=== PATIENT | female | born 1955 | race Caucasian/White ===

== ENCOUNTER 2017-04-05 07:06 | Inpatient (IN) | payer MEDICARE, OTHER ==
[2017-03-24 20:39] LABS: BASOPHILS 0.3 %; BASOPHILS ABSOLUTE 0.04 10/3/uL (0.0-0.16); EOSINOPHILS 1.2 %; EOSINOPHILS ABSOLUTE 0.15 10/3/uL (0.0-0.53); HEMATOCRIT 48.5 % (36.0-48.0); HEMOGLOBIN 15.9 g/dL (12.0-16.0); IMMATURE GRANULOCYTES 0.3 %; IMMATURE GRANULOCYTES ABSOLUTE 0.04 10/3/uL (0.0-0.11); LYMPHOCYTES ABSOLUTE 4.54 10/3/uL (0.67-4.30); MEAN CORPUS HGB CONC 32.8 g/dL (32.0-36.0); MEAN CORPUSCULAR HEMOGLOB 28.4 pg (26.0-34.0); MEAN CORPUSCULAR VOLUME 86.6 fL (80-100); MEAN PLATELET VOLUME 12.4 fL (9.2-13.0); MONOCYTES 6.1 %; MONOCYTES ABSOLUTE 0.75 10/3/uL (0.21-1.20); NEUTROPHILS 55.1 %; NEUTROPHILS ABSOLUTE 6.74 10/3/uL (2.02-8.40); PLATELET COUNT 260 10/3/uL (150-400); RBC DISTRIBUTION WIDTH 14.3 % (12.0-16.0); WHITE BLOOD CELLS 12.3 10/3/uL (4.5-10.5)
[2017-03-24 20:41] LABS: MANUAL DIFF NO %
[2017-03-24 20:43] LABS: PARTIAL THROMBO TIME 35.4 SEC (22.5-37.2); PROTIME (NOT ORD) 12.8 SEC (12.0-14.5)
[2017-03-24 21:09] LABS: ASCORBIC ACID (UR NOT ORDER) NEG (NEG); BILIRUBIN, URINE NEGATIVE (NEG); KETONE, URINE NEGATIVE (NEG); LEUKOCYTE ESTERASE(NOT OR NEG (NEG); WBC (NOT ORDERED) (RFLEX) < 1 (0-5)
[2017-03-30 20:58] LABS: A/G RATIO 1.5 (0.7-1.9); ALBUMIN 4.2 G/DL (3.5-5.0); ALKALINE PHOSPHATASE 73 U/L (45-117); BUN (BLOOD UREA NITROGEN) 7 MG/DL (6-23); CALCIUM, SERUM 9.6 MG/DL (8.5-10.4); CHLORIDE, SERUM 97 MMOL/L (96-112); CO2 (CARBON DIOXIDE) 24 MMOL/L (24-34); CREATININE 0.72 MG/DL (0.55-1.02); GFR AFRICAN AMERICAN 103 ML/MIN (>=60); GFR NON AFRICAN AMERICAN 89 ML/MIN (>=60); GLOBULIN 2.8 G/DL (2.5-4.1); GLUCOSE, SERUM 109 MG/DL (60-99); POTASSIUM, SERUM 3.9 MMOL/L (3.5-5.3); SGOT(AST) 14 U/L (5-40); SGPT(ALT) 27 U/L (5-65); SODIUM, SERUM 133 MMOL/L (135-148); TOTAL BILIRUBIN 0.3 MG/DL (0-1.2)
--- NOTE | ~2017-04-05 | OP ---
Record Of Operation [facility] [address] [place]. [address] NAME: MIRIAM CHAPARRO : 51 STATUS : ADM IN PAT#: [id number] AGE: 61 ADM/REG DATE : 04/05/17 MR#: [id number] REPORT SERV DATE: 04/05/17 DICTATED BY: ELLIS MILLS DATE: 04/05/17 REPORT STATUS : Draft TRANSCRIBED BY: MODLeah DATE: 04/05/17 DATE OF PROCEDURE: 04/05/2017 PREOPERATIVE DIAGNOSIS: Severe varus osteoarthritis of the right knee. POSTOPERATIVE DIAGNOSIS: Severe varus osteoarthritis of the right knee. PROCEDURE: Right total knee arthroplasty. SURGICAL ENDOSCOPIST: Anjum Shepard. ANESTHESIA: Spinal with MAC. ESTIMATED BLOOD LOSS: 100 mL. COMPLICATIONS: None. DRAINS: ConstaVac x1. TOURNIQUET TIME: Approximately 70 minutes. IMPLANTS: Ron and Ron Attune size 5 posterior stabilized right femoral component, a size 4 modular tibial tray, with 6 mm thick posterior stabilized tibial polyethylene insert, the patella was a 35 mm patella. All components were cemented in place with [employer] Simplex bead set bone cement. INDICATIONS FOR SURGERY: Ms. Chaparro is a 61-year-old female, with severe varus osteoarthritis of her right knee. She has had unremitting pain, which has been refractory to medical management. She presents requesting the above-mentioned procedure. Risks of the procedure as detailed in the history and physical, and operative consent were discussed prior to proceeding. She fully understood and has requested to proceed. DESCRIPTION OF PROCEDURE: The patient was brought to the operating room and after induction of anesthesia, was positioned in the supine position. All appropriate pressure points were padded. The operative knee was then prepped and draped in the usual sterile fashion. Time out was performed confirming the appropriate surgical side and site. The leg was exsanguinated with an Abdifatah wrap and the tourniquet inflated to 350 mmHg pressure. A medial parapatellar approach to the knee was performed. The skin and cutaneous tissues were incised sharply in the midline with a #10 blade. Electrocautery was used as needed to maintain hemostasis. The retinaculum was divided and the extensor mechanism exposed. A median parapatellar arthrotomy was carried out. The medial tibia was exposed subperiosteally and the patellofemoral ligaments divided. The patella was then subluxated laterally and the knee carefully flexed. The knee was debrided of all osteophytes, meniscal remnants in the anterior and posterior cruciate ligaments. Record Of Operation [facility] [address] [place]. [address] NAME: MIRIAM CHAPARRO : 51 STATUS : ADM IN PAT#: [id number] AGE: 61 ADM/REG DATE : 04/05/17 MR#: [id number] REPORT SERV DATE: 04/05/17 DICTATED BY: ELLIS MILLS DATE: 04/05/17 REPORT STATUS : Draft TRANSCRIBED BY: AMANDA DATE: 04/05/17 Attention was then turned to the distal femur. The intramedullary guide was set at 5 degrees of valgus and secured to the distal femur. The distal femoral resection was then carried out. The femur was then sized to the appropriate block as determined intraoperatively and from templating. The AP cutting block was secured in such a way as to create matched distal and posterior femoral resections in the appropriate rotation. The anterior and posterior femoral cuts were made, chamfer cuts were completed and the box was created for the posterior stabilized femoral component. Attention was then turned to the tibia. The extramedullary alignment guide was set a neutral varus/valgus to match the patient's [place] posterior tibial slope. The tibia was resected, removing 2 to 3 mm, from the most affected side. The tibial fragment was then removed. Attention was then turned to the posterior aspect of the knee and any remaining posterior femoral osteophytes or meniscal remnants were debrided. The patella was then everted and a uniform resection created taking the thickness of the planned patellar component. The cut was checked with a caliper to be sure of the appropriate resection level. The patella was then finally sized and three holes drilled for an oval domed three peg patella. At this point, the varus/valgus alignment of the knee was accessed. The appropriate releases were performed to balance the knee. A trial reduction was performed. The knee came to a full extension. There was 2 to 3 mm of opening to both varus and valgus stress at 30 and 90 degrees of flexion and normal patellar tracking. At this point, all trial components were removed and the final tibial preparation performed. The bony surfaces were copiously irrigated with normal saline and dried and the final components cemented in place. Once the cement had fully cured, the knee was carefully inspected and all extruded cement fragments were removed. A trial reduction was once again performed. Range of motion and stability of the knee were unchanged. The true tibial insert was then impacted in the clean tibial tray. A drain was placed deep through the arthrotomy and the knee was once again irrigated with pulsatile lavage normal saline. The arthrotomy was repaired using interrupted 1-0 Vicryl suture in a [id number] fashion. The subcutaneous tissues were approximated with interrupted 2-0 Vicryl suture, the skin stapled. A sterile dressing was applied. The tourniquet was deflated and the patient was taken to the Recovery Room in stable condition. POSTOP PLAN: The patient is to be weightbearing as tolerated with physical therapy to be started per total knee arthroplasty protocol. The patient will be on Coumadin and mechanical deep venous thrombosis prophylaxis. MAGGY/AMANDA Ellis Mills M.D. Record Of Operation [address] [place]. [address] NAME: MIRIAM CHAPARRO : 51 STATUS : ADM IN PAT#: [id number] AGE: 61 ADM/REG DATE : 04/05/17 MR#: [id number] REPORT SERV DATE: 04/05/17 DICTATED BY: ELLIS MILLS DATE: 04/05/17 REPORT STATUS : Draft TRANSCRIBED BY: AMANDA DATE: 04/05/17 / [id number] CC: Ellis Mills M.D.
[~2017-04-05 07:06] MED LIST: ACET500CAP PO; AMARYL1 MG PO; CRESTOR10 PO; GLUCOPHAGE1000 MG PO; PRILO PO; ZESTORETIC1 TA1 PO
[2017-04-06 04:44] LABS: HEMATOCRIT 37.2 % (36.0-48.0); HEMOGLOBIN 12.5 g/dL (12.0-16.0)
[2017-04-06 04:48] LABS: INTERNATIONAL NORMAL RATI 1.2 UNITS (-); PROTIME (NOT ORD) 14.6 SEC (12.0-14.5)
[2017-04-06 04:53] LABS: CALCIUM, SERUM 8.9 MG/DL (8.5-10.4); CHLORIDE, SERUM 93 MMOL/L (96-112); CO2 (CARBON DIOXIDE) 28 MMOL/L (24-34); CREATININE 0.66 MG/DL (0.55-1.02); GFR AFRICAN AMERICAN 109 ML/MIN (>=60); GFR NON AFRICAN AMERICAN 94 ML/MIN (>=60); GLUCOSE, SERUM 94 MG/DL (60-99); POTASSIUM, SERUM 4.6 MMOL/L (3.5-5.3)
[2017-04-06 04:55] LABS: BUN (BLOOD UREA NITROGEN) 12 MG/DL (6-23); SODIUM, SERUM 126 MMOL/L (135-148)
[2017-04-07 05:16] LABS: HEMATOCRIT 33.8 % (36.0-48.0); HEMOGLOBIN 11.6 g/dL (12.0-16.0)
[2017-04-07 05:20] LABS: INTERNATIONAL NORMAL RATI 1.3 UNITS (-); PROTIME (NOT ORD) 16.2 SEC (12.0-14.5)
[2017-04-07] MEDS ORDERED: COUMADIN4 MG (08:59)
[2017-04-07] MEDS ORDERED: OXYCOD PO (08:59)
== END 2017-04-07 11:05 | disposition home or self-care (01) | DRG 470 ==
LOC: SDC/OF 07:06 → PACU 12:12 → 3JRC 14:47
PROVIDERS: Specialist
PROC: 3E0T3CZ (ICD-10-PCS; 2017-04-05)
PROC: 0SRC0J9 Replacement of Right Knee Joint with Synthetic Substitute, Cemented, Open Approach (ICD-10-PCS; principal; 2017-04-05 09:30)
DX: M17.11 Unilateral primary osteoarthritis, right knee (principal); I10 Essential (primary) hypertension; E11.9 Type 2 diabetes mellitus without complications; E66.9 Obesity, unspecified; F17.210 Nicotine dependence, cigarettes, uncomplicated; Z68.33 Body mass index [BMI] 33.0-33.9, adult; K21.9 Gastro-esophageal reflux disease without esophagitis; E78.5 Hyperlipidemia, unspecified; Z79.82 Long term (current) use of aspirin; Z79.899 Other long term (current) drug therapy; Z79.84 Long term (current) use of oral hypoglycemic drugs
CPT/HCPCS: 36415; 71020-PO; 80048; 80053; 81001; 82962; 83036; 85014; 85018; 85025; 85610; 85730; 86850; 86900; 86901; 87641; 88305; 88311; 93005; 97110-GP; 97116-GP; 97150-GP; 97161-GP; 97165-GO; A9270-GY; C1776; G8978-CJ-GP; G8979-CH-GP; J1580; J1885; J2250; J2270; J2405; J2795; J3010; J3370